=== PATIENT | male | born 1980 | race Caucasian/White ===

== ENCOUNTER 2017-11-23 02:52 | Emergency (ER) | payer BC ==
[~2017-11-23] VITALS: Ht 175.3 cm; Wt 117.9 kg
[2017-11-23 02:55] VITALS: BP 144/62
--- NOTE | 2017-11-23 02:55 | NUR ---
TO BED # 9 AMBULATORY, REPORT GIVEN TO DAISY BEARD
--- NOTE | 2017-11-23 02:56 | NUR ---
PT PRESENTED TO ER C/O PAIN TO THE ABDOMEN, GENERALIZED REGION X 2 DAYS. PT STATED HE IS CONSTIPATED AND HAS SHARP PAIN ALL OVER ABDOMEN. PT DENIES BLOOD IN STOOL, OR PAIN WHILE URINATING. PT ALSO DENIES N/V/D AND FEVER. NO FEVER AT THIS TIME. PT HAS NKA AND HAS MEDICAL HISTORY OF ABCESS IN INTESTINE AND DIVERTICULITIS AND HTN. SKIN IS PINK/WARM/DRY; AAOX4 WITH EVEN AND STEADY GAIT; LUNGS CLEAR BL; HR EVEN AND REGULAR; PATIENT STATES PAIN OF 10/10 AT THIS TIME; VSS; PATIENT POSITIONED FOR COMFORT; HOB ELEVATED; BEDRAILS UP X2; BED DOWN. ER MD MADE AWARE OF PT STATUS.
--- NOTE | 2017-11-23 03:02 | NUR ---
Dr. Chavez evaluating patient at bedside.
[2017-11-23] MEDS ORDERED: NACL 0.9% 1,000 ML IV SCH (03:06)
[2017-11-23] MEDS ORDERED: KETOROLAC 30 MG/ML VIAL IVP ONE (03:10)
--- NOTE | 2017-11-23 03:20 | NUR ---
PT TAKEN TO CT
[2017-11-23 03:24] LABS: BASOPHILS # (AUTO) 0.1 K/uL (0.00-0.22); BASOPHILS % (AUTO) 0.5 % (0.0-2.0); EOSINOPHILS # (AUTO) 0.2 K/uL (0-0.4); EOSINOPHILS % (AUTO) 1.3 % (0.0-4.0); HEMATOCRIT 48.3 % (36-52); HEMOGLOBIN 16.5 g/dL (12.0-18.0); LYMPHOCYTES # (AUTO) 1.9 K/uL (2.0-11.5); LYMPHOCYTES % (AUTO) 10.6 % (20.5-51.1); MEAN CORPUSCULAR HEMOGLOBIN 32 pg (27-31); MEAN CORPUSCULAR HGB CONC 34 g/dL (33-37); MEAN CORPUSCULAR VOLUME 93.1 fL (80-94); MONOCYTES # (AUTO) 1.5 K/uL (0.8-1.0); MONOCYTES % (AUTO) 8.5 % (1.7-9.3); NEUTROPHILS # (AUTO) 14.5 K/uL (1.8-7.7); PLATELET COUNT (AUTO) 279 K/uL (140-450); RED BLOOD CELL COUNT(AUTO) 5.19 MIL/uL (4.20-6.10); RED CELL DISTRIBUTION WIDTH 13.3 % (11.6-13.7); WHITE BLOOD COUNT (AUTO) 18.3 K/uL (4.8-10.8)
[2017-11-23 03:39] LABS: NEUTROPHILS % (AUTO) 79.1 % (42.2-75.2)
[2017-11-23 03:41] LABS: ANION GAP 9.1 (8-16); CARBON DIOXIDE 26.9 mmol/L (21-32); CREATININE 0.9 mg/dL (0.7-1.3)
[2017-11-23 03:41] LABS: APPEARANCE,URINE CLEAR (CLEAR); BILIRUBIN,URINE NEGATIVE (NEGATIVE); BLOOD, URINE NEGATIVE (NEGATIVE); COLOR,URINE YELLOW (YELLOW); LEUKOCYTE ESTERASE ,URINE NEGATIVE (NEGATIVE); NITRITE, URINE NEGATIVE (NEGATIVE); UGLUCOSE NEGATIVE (NEGATIVE)
--- NOTE | 2017-11-23 03:41 | NUR ---
PT RESTING IN BED. COMFORT MEASURES OFFERED. PT TOLERATED WELL.
[2017-11-23 03:49] LABS: TOTAL BILIRUBIN 0.9 mg/dL (0.0-1.0)
[2017-11-23 03:50] LABS: RBC,URINE 0-5 (RARE) /HPF (0-5); WBC,URINE 0-5 (RARE) /HPF (0-5)
[2017-11-23 04:55] VITALS: BP 144/62
--- NOTE | 2017-11-23 04:55 | NUR ---
Patient discharged with v/s stable. Written and verbal after care instructions given and explained. Patient alert, oriented and verbalized understanding of instructions. Ambulatory with to car. All questions addressed prior to discharge. ID band removed. Patient advised to follow up with PMD. Rx of Flagyl, Motrin, Cipro was given. Patient educated on indication of medication including possible reaction and side effects. Opportunity to ask questions provided and answered.
== END 2017-11-23 04:55 | disposition home or self-care (01) ==
LOC: MED 02:52
DX: K57.92 Diverticulitis of intestine, part unspecified, without perforation or abscess without bleeding (principal); I10 Essential (primary) hypertension
CPT/HCPCS: 36415; 74176; 80053; 81001; 83690; 85025; 96374; 99285; J1885

== ENCOUNTER 2023-04-10 20:10 | Emergency (ER) | payer BC ==
[~2023-04-10] VITALS: Ht 175.3 cm; Wt 113.4 kg
[2023-04-10 20:20] VITALS: BP 140/79; PULSE 80; RESP 17; TEMP 98.1; O2SAT 98
[2023-04-10 21:40] LABS: BASOPHILS # (AUTO) 0.1 K/uL (0.00-0.22); BASOPHILS % (AUTO) 0.6 % (0.0-2.0); EOSINOPHILS # (AUTO) 0.4 K/uL (0-0.4); EOSINOPHILS % (AUTO) 2.5 % (0.0-4.0); HEMATOCRIT 45.3 % (36-52); HEMOGLOBIN 15.7 g/dL (12.0-18.0); LYMPHOCYTES # (AUTO) 2.6 K/uL (2.0-11.5); LYMPHOCYTES % (AUTO) 16.5 % (20.5-51.1); MEAN CORPUSCULAR HEMOGLOBIN 32 pg (27-31); MEAN CORPUSCULAR HGB CONC 35 g/dL (33-37); MEAN CORPUSCULAR VOLUME 93.1 fL (80-94); MONOCYTES # (AUTO) 1.2 K/uL (0.8-1.0); MONOCYTES % (AUTO) 7.5 % (1.7-9.3); NEUTROPHILS # (AUTO) 11.6 K/uL (1.8-7.7); NEUTROPHILS % (AUTO) 72.9 % (42.2-75.2); PLATELET COUNT (AUTO) 328 K/uL (140-450); RED BLOOD CELL COUNT(AUTO) 4.86 MIL/uL (4.20-6.10); RED CELL DISTRIBUTION WIDTH 13.3 % (11.6-13.7); WHITE BLOOD COUNT (AUTO) 15.8 K/uL (4.8-10.8)
[2023-04-10 22:04] LABS: ALANINE AMINOTRANSFERASE 24 U/L (12-78); ALBUMIN 3.8 g/dL (3.4-5.0); ALKALINE PHOSPHATASE 47 U/L (50-136); ASPARTATE AMINOTRANSFERASE 14 U/L (15-37); CALCIUM 9.1 mg/dL (8.5-10.1); CHLORIDE 101 mmol/L (98-107); CREATININE 0.8 mg/dL (0.6-1.3); GFR ARICAN-AMERICAN 138 mL/min (>90); GFR NON ARICAN-AMERICAN 114 mL/min (>90); GLUCOSE 93 mg/dL (74-106); LIPASE 125 U/L (16-77); SODIUM SERUM 136 mmol/L (136-145); TOTAL BILIRUBIN 0.6 mg/dL (0.0-1.0); TOTAL PROTEIN, SERUM 7.1 g/dL (6.4-8.2); UREA NITROGEN, BLOOD 15 mg/dL (7-18)
[2023-04-10] MEDS ORDERED: FAMO-92 PO (22:55)
[2023-04-10] MEDS ORDERED: ONDA-188 SL (22:55)
[2023-04-10] MEDS ORDERED: ACET-8905 PO (22:55)
[2023-04-10 23:26] VITALS: BP 136/74; PULSE 76; RESP 16; TEMP 98.1; O2SAT 98
== END 2023-04-10 23:26 | disposition home or self-care (01) ==
LOC: MED 20:10
DX: K08.89 Other specified disorders of teeth and supporting structures (principal); K29.70 Gastritis, unspecified, without bleeding; I10 Essential (primary) hypertension; Z79.899 Other long term (current) drug therapy
CPT/HCPCS: 36415; 71045; 80053; 83690; 84484; 85025; 93005; 99285